=== PATIENT | male | born 1950 | race Hispanic/Latino ===

== ENCOUNTER 2018-08-05 06:23 | Day surgery (SDC) | payer BC ==
[2018-07-23 10:38] VITALS: BMI 25.0
[2018-08-05 07:23] LABS: BASO # 0.06 K/mm3 (0.0-2.0); BASO % 0.6 % (0.0-3.0); EOS # 0.7 (0.0-0.7); EOS % 7.2 % (1.5-5.0); GRAN # 5.16 (1.4-6.5); GRAN % 51.4 % (50.0-68.0); HEMOGLOBIN 15.3 g/dL (14.0-18.0); LYMPH # 3.3 (1.2-3.4); LYMPH % 32.8 % (22.0-35.0); MEAN CELL VOLUME 91.1 fl (80.0-105.0); MEAN CORPUSCULAR HEMOGLOBIN 30.8 pg (25.0-35.0); MEAN CORPUSCULAR HGB CONC 33.8 g/dl (31.0-37.0); MONO # 0.8 (0.1-0.6); RBC 4.97 10^6/uL (3.5-6.1); RED CELL DISTRIBUTION WIDTH 13.5 % (11.5-14.5)
[2018-08-05] MEDS ORDERED: Iodixanol 320 MG/ML 100 ML BOTTLE IV ONE (07:37)
[2018-08-05] MEDS ORDERED: Iodixanol 320 MG/ML 200 ML BOTTLE IV ONE (07:37)
[2018-08-05] MEDS ORDERED: Adenosine 90 mg/30mL IV ONE (07:37)
[2018-08-05] MEDS ORDERED: Lidocaine 2% Inj (20ml) ONE (07:37)
[2018-08-05] MEDS ORDERED: Iohexol 350mgl/ml 50 ML ONE (07:37)
[2018-08-05 07:38] LABS: BLOOD UREA NITROGEN 20 mg/dL (7-21); CALCIUM 8.9 mg/dL (8.4-10.5); GFR NON-AFRICAN AMERICAN > 60; HDL CHOLESTEROL 35 mg/dL (29-60)
[2018-08-05] MEDS ORDERED: Nitroglycerin 50mg in D5W 50 MG/250 ML BOTTLE IV ONE (07:38)
[2018-08-05] MEDS ORDERED: Heparin 2,000 ML IV ONE (07:38)
[2018-08-05 07:49] LABS: LDL CHOLESTEROL 164 mg/dL (0-129)
[2018-08-05] MEDS ORDERED: Midazolam 2 MG/2 ML VIAL ONE ×3 (08:15→09:07)
[2018-08-05] MEDS ORDERED: Verapamil 2 ML ONE (08:22)
[2018-08-05] MEDS ORDERED: Bacitracin 500 Units/gm Oint Foilpak UD TOP ONE (09:47)
[2018-08-05] MEDS ORDERED: Bacitracin 500 Units/gm Oint Foilpak UD ONE (14:09)
[2018-08-05] MEDS ORDERED: Oxycodone/Acetaminophen 5/325 mg Tab PO PRN (19:41)
--- NOTE | 2018-08-05 23:51 | CARD ---
APPROVED REPORT Date of service: 08/05/2018 EKG Measurement Heart [id number] <Conclusion> Normal sinus rhythm Septal infarct, age undetermined Abnormal ECG
[2018-08-06 00:14] VITALS: BP 98/63; PULSE 72; RESP 16; TEMP 98.8; O2SAT 98
--- NOTE | 2018-08-06 08:37 | PROCN ---
DATE: 08/05/2018 INDICATIONS: Mr. Helton is a 68-year-old male with history of hypertension, dyslipidemia, [id number] history of smoking who was brought for evaluation of symptoms of dyspnea on exertion after undergoing abnormal exercise nuclear stress test. PROCEDURE PERFORMED: Left heart catheterization with selective left and right coronary angiogram via left radial artery approach, FFR evaluation of left main and left anterior descending and left ventriculogram. TECHNIQUES OF PROCEDURE: After obtaining informed consent, the patient was brought to the cardiac cath suite in post-absorptive and nonsedated state. The patient was prepped and draped in the usual sterile fashion. A 2% lidocaine was used for infiltration of anesthesia. Using modified Seldinger technique, a 6-Telugu sheath was introduced into the right radial artery and subsequently over J-wire. JR4 and JL4 diagnostic catheters were used to engage the right and left coronary artery. Angiograms were obtained in different orthogonal views. Subsequently, LV gram was obtained in the HERRERA view. Hemodynamics were obtained and pullback gradients were noted. HEMODYNAMIC FINDINGS: Left ventricular end-diastolic pressure was 18 mmHg. There was no gradient noted upon the aortic valve pullback. There was no CA, left ventricular ejection fraction estimated to be 55%-60%. Coronary . Left main is a large-sized vessel bifurcates into left anterior descending and left circumflex coronary artery. Left main has mid segment intermediate 40% to 50% angiographic stenosis, left anterior descending artery has ostial tandem 70% stenosis and mid 50% stenosis gives off to medium sized diagonal branches free of any obstructive disease, left circumflex runs in the AV groove, gives off one small size obtuse marginal branch free of any obstructive disease, RCA is a large-sized vessel has proximal nonobstructive lesion free of any obstructive disease. After identifying the LAD stenosis, left main FFR evaluation was done, which was physiologically significant at 0.65. 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 RECOMMENDATIONS: The patient is to be transferred to [place] for a MIDCAB procedure to be arranged by Dr. Mayfield . Tom Smart MD [facility] # [id number]
== END 2018-08-06 01:37 | disposition short-term general hospital (02) ==
LOC: CATH 06:23 → 2RSO 10:32 → CATH 08-06 01:37
PROVIDERS: ATTEND Internal Medicine Interventional Cardiology
DX: I25.10 Atherosclerotic heart disease of native coronary artery without angina pectoris (principal); I10 Essential (primary) hypertension; E78.5 Hyperlipidemia, unspecified; R94.39 Abnormal result of other cardiovascular function study; Z87.891 Personal history of nicotine dependence
CPT/HCPCS: 36415; 80048; 80061; 83036; 85025; 85175; 86850; 86900; 93005; 93458; 93571; 99152; C1769 ×2; C1887; C1894; J0153; J1644 ×2; J2250; J3010; Q9966